=== PATIENT | female | born 1950 | race Caucasian/White ===

== ENCOUNTER → 2020-06-26 10:38 | Outpatient (REF) | payer MEDICARE, SELFPAY ==
--- NOTE | 2020-06-26 | NM_ITS ---
EXAMINATION: THREE PHASE BONE SCAN CLINICAL INFORMATION: Question stress fracture left foot.. COMPARISON: No previous bone scan is available for comparison. Radiographs of the left foot dated 06/26/2020, the same date as this bone scan are available for comparison.. TECHNIQUE: Initial rapid sequence images were obtained over the the distal lower extremities in the anterior and posterior projections during the bolus injection of 25 mCi Tc-99m MDP. Static images of the whole-body including multiple views of the feet were then obtained 2.5 hours post injection. FINDINGS: Initial rapid sequence images show a discrete focus of moderately increased flow in the mid left foot. This is superimposed upon a very mild diffuse increase in flow to the visualized distal left lower extremity. No other foci of increased flow are present. Blood pool images obtained immediately following the flow study also show a discrete focus of increased blood pool activity in the mid left foot, somewhat laterally. The delayed static images of the whole body show. In the head, no significant abnormalities are present. In the thoracic cage and upper extremities, there is minimally increased activity in the acromioclavicular joints bilaterally, the right sternoclavicular joint and the costochondral junction of the left first rib. A few periarticular foci of mildly increased activity are present in both hands and wrists, all likely arthritic. In the spine, very minimally increased activity is present and L4. In the pelvis, no significant abnormalities are present. In the lower extremities, there is a discrete focus of moderately increased activity somewhat laterally in the mid left foot, most likely in the base of the left third metatarsal bone. This is difficult to localize and could be in the base of the fourth metatarsal. There is minimally increased activity in the left first metatarsophalangeal joint, likely arthritic. A photopenic defect from a well-healed right total knee prosthesis is noted. There is also mildly increased activity in the patellar and medial compartments of the left knee, likely arthritic. No other definite bony abnormalities are noted. The urinary bladder and faint visualization of both kidneys are noted. The contemporaneous left foot radiographs show no abnormalities at correspond to the focal abnormality described above on this bone scan. IMPRESSION: 1. A solitary focal abnormality in the mid left foot is somewhat difficult to localize but is likely in the base of the left third metatarsal bone. Although in the proper clinical setting a small focus of osteomyelitis cannot be entirely ruled out, these findings are most consistent with a stress fracture at this site. 2. A few additional mild nonspecific abnormalities are noted as described above and these are all likely arthritic or traumatic in etiology. None of these abnormalities is strongly suspicious for metastatic disease.
--- NOTE | 2020-06-26 10:45 | XR_ITS ---
EXAMINATION: XR FOOT, LEFT CLINICAL INFORMATION: Pain. Assess for stress fracture. COMPARISON: None TECHNIQUE: AP, lateral, and oblique views of the left foot. FINDINGS: There is no visible acute or healing fracture, dislocation, or destructive process. There is mild joint narrowing first MTP without erosive change or periarticular soft tissue mineralization. Some spurring is present at base fifth metatarsal at insertion peroneal longus. There is borderline posterior and small plantar calcaneal spurs. The retrocalcaneal recess is preserved. IMPRESSION: 1. No acute or healing fracture. 2. Mild joint narrowing first MTP. 3. Small calcaneal spurs.
== END ==
LOC: HO.NUCMED 10:38
PROVIDERS: PCP Physician Assistant Medical; Visit Provider Podiatrist
DX: M84.372A Stress fracture, left ankle, initial encounter for fracture (principal)
CPT/HCPCS: 73630; 78315; A9503